=== PATIENT | female | born 1955 | race Caucasian/White ===

== ENCOUNTER 2017-04-13 17:10 | Emergency (ER) | payer OTHER ==
[~2017-04-13] VITALS: Ht 167.6 cm; Wt 61.2 kg
[2017-04-13 17:24] VITALS: BP 145/90
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
--- NOTE | 2017-04-13 17:28 | NUR ---
DR PATE AT BEDSIDE
--- NOTE | 2017-04-13 17:38 | NUR ---
Patient eloped from facility. ER MD notified.
== END 2017-04-13 17:40 | disposition left against medical advice (07) ==
LOC: ER 17:12
DX: M79.671 Pain in right foot (principal); X58.XXXA Exposure to other specified factors, initial encounter; Y92.811 Bus as the place of occurrence of the external cause; Y93.89 Activity, other specified; Y99.8 Other external cause status
CPT/HCPCS: A4606; Z7502; Z7610

== ENCOUNTER 2017-04-28 19:29 | Emergency (ER) | payer OTHER ==
[~2017-04-28] VITALS: Ht 167.6 cm; Wt 61.2 kg
[2017-04-28 19:36] VITALS: BP 169/96
[2017-04-28 20:06] LABS: APPEARANCE,URINE Cloudy (CLEAR); BILIRUBIN,URINE SMALL (NEGATIVE); BLOOD, URINE Large Ery/uL (NEGATIVE); COLOR,URINE Amber (YELLOW); KETONES,URINE Trace (NEGATIVE); LEUKOCYTE ESTERASE ,URINE Trace (NEGATIVE); NITRITE, URINE Negative (NEGATIVE); PH,URINE 5.5 (5.0-8.0); PROTEIN,URINE >=300 mg/dl (NEGATIVE); UGLUCOSE Negative (NEGATIVE); UROBILINOGEN,URINE 0.2 EU/dL (0.2)
[2017-04-28 20:58] LABS: RBC,URINE TOO NUMEROUS TO COUN /HPF (0-2)
[2017-04-28 20:59] LABS: BACTERIA,URINE Moderate /HPF (None Seen); SQUAMOUS EPITHELIAL CELL,UR Rare /HPF (None Seen); URINE AMORPHOUS URATE Few /HPF (None Seen)
[2017-04-28] MEDS ORDERED: PHENAZOPYRIDINE HCL 200 MG TABLET PO ONE (21:00)
[2017-04-28] MEDS ORDERED: CEPHALEXIN MONOHYDRATE 500 MG CAPSULE PO ONE ×2 (21:00→21:02)
[2017-04-28] MEDS ORDERED: PHENAZOPYRIDINE HCL 200 MG TABLET ONE (21:02)
== END 2017-04-28 21:07 | disposition home or self-care (01) ==
LOC: ER 19:34
DX: N30.91 Cystitis, unspecified with hematuria (principal); N39.0 Urinary tract infection, site not specified
CPT/HCPCS: 81000-TC; 87086-TC; 87186-TC; A4606; Z7610